=== PATIENT | male | born 1955 | race Caucasian/White ===

== ENCOUNTER → 2019-08-15 07:40 | Outpatient (CLI) | payer OTHER | END | disposition home or self-care (01) | LOC: D.US 07:40 | PROVIDERS: ATTEND Nurse Practitioner Family | DX: M79.605 Pain in left leg (principal) ==

== ENCOUNTER → 2019-09-01 11:23 | Outpatient (CLI) | payer OTHER | END | disposition home or self-care (01) | LOC: D.RAD 11:23 | PROVIDERS: ATTEND Allergy & Immunology | DX: R05 Cough (principal) ==